=== PATIENT | male | born 1975 | race Caucasian/White ===

== ENCOUNTER 2022-08-29 02:54 | Inpatient (IN) | payer MEDICAID ==
[~2022-08-29] VITALS: Ht 172.7 cm; Wt 89.4 kg
[2022-08-29] MEDS ORDERED: SODIUM CHLORIDE 0.9% 1,000 ML IV NR (03:45)
[2022-08-29 04:06] LABS: BASOPHILS % 0.5 % (0.0-2.0); EOSINOPHILS % 0.3 % (0.0-5.0); HEMATOCRIT. 44.8 % (42.0-52.0); HEMOGLOBIN. 15.3 g/dL (14.0-18.0); MEAN CORPUSCULAR HEMOGLOBIN 31.4 pg (28.0-32.0); MEAN CORPUSCULAR VOLUME 91.7 fL (80.0-94.0); MEAN PLATELET VOLUME 7.8 fl (7.4-10.4); MONOCYTES % 7.3 % (2.0-8.0); NEUTROPHILS % 60.9 % (40.0-76.0); PLATELET 194 x1000/uL (130-400); RED BLOOD CELL COUNT 4.89 mill/uL (4.7-6.1); RED CELL DISTRIBUTION WIDTH 12.1 % (11.6-14.6)
[2022-08-29 04:10] LABS: CHLORIDE 106 mEq/L (98-107)
[2022-08-29 04:19] LABS: ETHANOL BLOOD 237 mg/dL
[2022-08-29 04:54] LABS: *AMPHETAMINES SCREEN URINE NEGATIVE (NEGATIVE); *BARBITURATES SCREEN URINE NEGATIVE (NEGATIVE); *BENZODIAZEPINES SCREEN URINE NEGATIVE (NEGATIVE); *COCAINE SCREEN URINE PRESUMTIVE POSITIVE (NEGATIVE); CANNABINOID URINE SCREEN NEGATIVE (NEGATIVE); METHADONE URINE SCREEN NEGATIVE (NEGATIVE); OPIATES URINE SCREEN NEGATIVE (NEGATIVE); PHENCYCLIDINE URINE SCREEN NEGATIVE (NEGATIVE)
[2022-08-29] MEDS ORDERED: POTASSIUM CHLORIDE 20MEQ TABLET SR PO NR (06:00)
[2022-08-29] MEDS ORDERED: DIPHENHYDRAMINE 50MG/ML VIAL IV PRN (06:00)
[2022-08-29] MEDS ORDERED: ONDANSETRON HCL 4MG/2ML INJ IV PRN (06:00)
[2022-08-29] MEDS ORDERED: DOCUSATE SODIUM 100MG CAPSULE PO PRN (06:00)
[2022-08-29] MEDS ORDERED: IPRATROPIUM/ALBUTEROL 0.5-3(2.5)MG/3ML NEB HHN PRN (06:00)
[2022-08-29] MEDS ORDERED: ACETAMINOPHEN 325MG TABLET PO PRN ×2 (06:00)
[2022-08-29] MEDS ORDERED: CLONIDINE 0.1MG TABLET PO PRN (06:00)
[2022-08-29] MEDS ORDERED: GUAIFENESIN 200MG/10ML SUGAR FREE UDC PO PRN (06:00)
[2022-08-29] MEDS ORDERED: DEXTROSE 50% WATER 50ML SYRINGE IV PRN ×2 (06:00→09:30)
[2022-08-29] MEDS: GLUCAGON,HUMAN RECOMBINANT 1MG/VIAL IV NR ×3 (06:30→08:20)
[2022-08-29] MEDS ORDERED: NOREPINEPHRINE 8 MG in DEXTROSE 5% WATER 250 ML IV PRN (06:45)
[2022-08-29] MEDS ORDERED: NOREPINEPHRINE 8 MG in DEXT 5% WATER 242 ML IV PRN (06:45)
[2022-08-29 06:46] LABS: BG BASE EXCESS -3.9 mmol/L (-2.0-2.0); BG CARBOXYHEMOGLOBIN 0.1 % (0.5-1.5); BG DEOXYHEMOGLOBIN 2.9 % (0.0-5.0); BG FRACTION INSPIRED OXYGEN 21; BG HCO3 ACT 19.9 mmol/L (22.0-26.0); BG METHEMOGLOBIN 0.7 % (0.0-1.5); BG OXYGEN SATURATION 97.1 % (92.0-98.5); BG OXYHEMOGLOBIN 96.3 % (94.0-97.0); BG PCO2 32.9 mmHg (35.0-45.0); BG PH 7.399 (7.350-7.450); BG PO2 106.6 mmHg (75.0-100.0); BG SAMPLE SITE RIGHT BRACHIAL; BG TOTAL HEMOGLOBIN 15.9 g/dL (12.0-18.0)
[2022-08-29] MEDS: SODIUM CHLORIDE 0.9% 1,000 ML IV SCH (06:50)
[2022-08-29 07:08] LABS: CREATINE KINASE 177 IU/L (39-308); CREATINE KINASE MB FRACTION 2.3 ng/mL (0.5-3.6)
[2022-08-29 07:15] LABS: BETA HYDROXYBUTYRATE 0.4 mMol/L (0.0-0.3); T4 FREE 0.96 ng/dL (0.76-1.46)
[2022-08-29] MEDS ORDERED: THIAMINE HCL 100MG TABLET PO SCH (09:00)
[2022-08-29] MEDS ORDERED: FOLIC ACID 1MG TABLET PO SCH (09:00)
[2022-08-29] MEDS ORDERED: MVI, ADULT NO.1 10 ML, FOLIC ACID 1 MG, THIAMINE HCL 100 MG in SODIUM CHLORIDE 0.9% 1,0... IV SCH ×4 (09:00)
[2022-08-29] MEDS ORDERED: LOSARTAN POTASSIUM 50 MG TABLET PO SCH (09:00)
[2022-08-29] MEDS: INSULIN LISPRO 100 UNITS/ML SUBCUT SCH ×4 (09:08→21:07)
[2022-08-29 09:12] LABS: CLARITY URINE CLEAR (CLEAR); COLOR URINE YELLOW (YELLOW); KETONES URINE 1+ (NEGATIVE); LEUKOCYTE ESTERASE URINE NEGATIVE (NEGATIVE); NITRITE URINE NEGATIVE (NEGATIVE); OCCULT BLOOD URINE NEGATIVE (NEGATIVE); PROTEIN URINE NEGATIVE (NEGATIVE); SPECIFIC GRAVITY URINE 1.034 (1.005-1.030); UROBILINOGEN URINE 0.2 E.U./dL (0.2-1.0)
[2022-08-29] MEDS: BLOOD SUGAR DIAGNOSTIC STRIP TEST SCH ×6 (09:12→21:01)
[2022-08-29] MEDS: HYDROCHLOROTHIAZIDE 12.5MG CAPSULE PO SCH (10:01)
[2022-08-29] MEDS: AMLODIPINE 10MG TABLET PO SCH (10:01)
[2022-08-29] MEDS: ASPIRIN 81MG EC TABLET PO SCH (10:14)
[2022-08-29] MEDS: ENOXAPARIN 40MG/0.4ML SYR SUBCUT SCH (10:15)
[2022-08-29] MEDS: PAROXETINE HCL 10MG TABLET PO SCH (10:15)
[2022-08-29] MEDS ORDERED: MAGNESIUM 2 G PREMIX 50 ML IV SCH (11:00)
[2022-08-29 11:08] LABS: T4 FREE 0.93 ng/dL (0.76-1.46)
[2022-08-29] MEDS ORDERED: INSULIN LISPRO 100 UNITS/ML SUBCUT SCH (13:20)
[2022-08-29 18:18] LABS: CHLORIDE 106 mEq/L (98-107)
[2022-08-29 18:31] LABS: CREATINE KINASE 169 IU/L (39-308); CREATINE KINASE MB FRACTION 1.9 ng/mL (0.5-3.6)
[2022-08-29 20:30] VITALS: BP 131/67
[2022-08-29 20:50] VITALS: BP 131/66
[2022-08-29] MEDS ORDERED: ATORVASTATIN CALCIUM 40MG TABLET PO SCH (21:00)
[2022-08-29] MEDS ORDERED: FAMOTIDINE 20MG TABLET PO SCH (21:00)
[2022-08-29] MEDS ORDERED: INSULIN GLARGINE 100 UNITS/ML SUBCUT SCH (22:00)
[2022-08-30] VITALS (8 sets, daily range): BP systolic 119–158; BP diastolic 67–81
[2022-08-30] MEDS ORDERED: LOSA100T32 MT (00:56)
[2022-08-30] MEDS ORDERED: PRAV80TA21 MT (00:56)
[2022-08-30] MEDS ORDERED: LOSA50TA41 MT (00:56)
[2022-08-30] MEDS ORDERED: HYDR12.54 MT (00:56)
[2022-08-30] MEDS ORDERED: PARO10TA87 MT (00:56)
[2022-08-30] MEDS ORDERED: BENA-8 MT (00:56)
[2022-08-30] MEDS ORDERED: AMLO5TAB88 MT (00:56)
[2022-08-30] MEDS ORDERED: *PATIENT'S OWN MEDICATION STORAGE XX SCH (01:15)
[2022-08-30] MEDS: SODIUM CHLORIDE 0.9% 1,000 ML IV SCH (02:07)
[2022-08-30 07:20] LABS: BASOPHILS % 0.8 % (0.0-2.0); EOSINOPHILS % 1.9 % (0.0-5.0); HEMATOCRIT. 44.6 % (42.0-52.0); HEMOGLOBIN. 15.8 g/dL (14.0-18.0); LYMPHOCYTES % 24.2 % (20.0-50.0); MEAN CORPUSCULAR HEMOGLOBIN 32.3 pg (28.0-32.0); MEAN CORPUSCULAR VOLUME 91.1 fL (80.0-94.0); MEAN PLATELET VOLUME 8.2 fl (7.4-10.4); MONOCYTES % 8.3 % (2.0-8.0); NEUTROPHILS % 64.8 % (40.0-76.0); PLATELET 183 x1000/uL (130-400); RED CELL DISTRIBUTION WIDTH 12.2 % (11.6-14.6)
[2022-08-30] MEDS: BLOOD SUGAR DIAGNOSTIC STRIP TEST SCH ×3 (07:40→17:40)
[2022-08-30] MEDS: INSULIN LISPRO 100 UNITS/ML SUBCUT SCH ×3 (07:50→18:10)
[2022-08-30] MEDS: PAROXETINE HCL 10MG TABLET PO SCH (10:13)
[2022-08-30] MEDS: ASPIRIN 81MG EC TABLET PO SCH (10:13)
[2022-08-30] MEDS: AMLODIPINE 10MG TABLET PO SCH (10:14)
[2022-08-30] MEDS: ENOXAPARIN 40MG/0.4ML SYR SUBCUT SCH (10:15)
[2022-08-30] MEDS: HYDROCHLOROTHIAZIDE 12.5MG CAPSULE PO SCH (10:23)
[2022-08-30] MEDS ORDERED: ALBUTEROL (0.083%) 2.5MG/3ML NEB HHN PRN (10:30)
[2022-08-30] MEDS ORDERED: IPRATROPIUM BROMIDE (0.02%) 0.5MG/2.5ML NEB HHN PRN (10:30)
[2022-08-30] MEDS ORDERED: POTASSIUM CHLORIDE INJ 40 MEQ in DEXT 5% WATER 250 ML IV ONE (10:30)
[2022-08-30] MEDS: KCL 20MEQ/100ML X 2 FOR TOTAL KCL 40MEQ/200ML IV SCH ×2 (13:39→17:10)
[2022-08-30 15:42] LABS: CHLORIDE 105 mEq/L (98-107)
[2022-08-30] MEDS ORDERED: LANTUSUD SUBCUT (16:36)
[2022-08-30] MEDS ORDERED: ENOXAPARIN 30MG/0.3ML SYR SUBCUT SCH (21:00)
== END 2022-08-30 20:45 | disposition home or self-care (01) | DRG 817 ==
LOC: ER 02:59 → 7WST 05:15 → EDBEDREQSVC 08:22 → ENRESERV 19:13
PROVIDERS: ADMIT Internal Medicine; ATTEND Internal Medicine
DX: T46.1X2A Poisoning by calcium-channel blockers, intentional self-harm, initial encounter (principal); F33.2 Major depressive disorder, recurrent severe without psychotic features; K76.0 Fatty (change of) liver, not elsewhere classified; E78.5 Hyperlipidemia, unspecified; E11.9 Type 2 diabetes mellitus without complications; Z20.822 Contact with and (suspected) exposure to COVID-19; E87.6 Hypokalemia; Z66 Do not resuscitate; E78.00 Pure hypercholesterolemia, unspecified; R74.01 Elevation of levels of liver transaminase levels; I10 Essential (primary) hypertension; F10.129 Alcohol abuse with intoxication, unspecified; F14.129 Cocaine abuse with intoxication, unspecified; Y90.7 Blood alcohol level of 200-239 mg/100 ml; Z79.899 Other long term (current) drug therapy; Y92.89 Other specified places as the place of occurrence of the external cause
CPT/HCPCS: 36415; 36600; 71045; 76700; 80048; 80053; 80061; 80076; 80305; 80307; 80320; 80329; 81003; 82010; 82375; 82550; 82553; 82805; 82962; 83036; 83735; 83880; 84132; 84439; 84443; 84484; 85025; 85379; 87426; 93005; 93306; 93970; 94640; 97162; 97165; 99291; C9803; J1610; J1650; J1815; J3411; J3475; J3480; J3490; J7030; G0480